=== PATIENT | male | born 1965 | race Caucasian/White ===

== ENCOUNTER → 2016-10-12 08:10 | Outpatient (CLI) | payer OTHER ==
--- NOTE | 2016-10-19 06:59 | EMG ---
PATIENT:HA JENNINGS DATE OF SERVICE: 10/12/16 MEDICAL RECORD: [id number] DATE OF : 61 LOCATION: [facility] ADMISSION DATE: REFERRING PHYSICIAN: SUKHI ROMERO INTERPRETING PHYSICIAN: TONY MEDRANO MD DATE OF SERVICE: 10/12/2016 REFERRED BY: Dr. Sukhi Romero as an outpatient. DATE OF EXAMINATION: 10/12/2016. ELECTROMYOGRAPHIC DATA: Electromyographic examination is limited to both lower extremities. In the right lower extremity, right peroneal motor stimulation elicits a compound motor action potential with a distal latency of 4.6 milliseconds, peak amplitude of 4 millivolts, and calculated conduction velocity of 43 meters per second. Right tibial motor stimulation elicits a compound motor action potential with a distal latency of 3.5 milliseconds, peak amplitude of 11 millivolts, and calculated conduction velocity of 40 meters per second. Antidromic right sural sensory stimulation elicits a response with a distal latency of 2.7 milliseconds, amplitude of 18 microvolts, and calculated conduction velocity of 42 meters per second. The right lower extremity H reflex recording at gastrocsoleus has a latency of 40 milliseconds. In the left lower extremity, left peroneal motor stimulation elicits a compound motor action potential with a distal latency of 5.1 milliseconds, peak amplitude of 4 millivolts, and calculated conduction velocity of 39 meters per second. Left tibial motor stimulation elicits a compound motor action potential with a distal latency of 4.3 milliseconds, peak amplitude of 12 millivolts, and calculated conduction velocity of 46 meters per second. Antidromic left sural sensory stimulation elicits a response with a distal latency of 2.9 milliseconds, amplitude of 15 microvolts, and calculated conduction velocity of 38 meters per second. The left lower extremity H reflex recording at gastrocsoleus has a latency of 39 milliseconds. Needle electrode examination is limited to both lower extremities as well. Muscles interrogated include the abductor hallucis, extensor digitorum brevis, abductor digiti quinti, tibialis anterior, medial gastrocnemius, vastus lateralis, semitendinosis and gluteus vick. There is no abnormality of insertional activity and no abnormal spontaneous activity is seen in all muscles interrogated. Motor unit potential morphology and the pattern of motor unit potential firing and recruitment are normal in all muscles sampled. Motor units fire at a slow variable rate consistent with decreased in variable patient effort. INTERPRETATION: Electromyographic examination of both lower extremities demonstrates all calculated conduction velocities to be at or just below the lower limits of normal with prolongation of the H reflexes bilaterally, most consistent with a diffuse disorder of the lower motor neuron in both lower extremities, minimal in degree electrically, consistent with the diagnosis of a sensory motor peripheral polyneuropathy. There is no electrical evidence of a superimposed lumbosacral radiculopathy or other lesion of the lower motor neuron in both lower extremities at this time. There is no evidence for active ELECTROMYGRAM/NERVE CONDUCTION [id number] HA JENNINGS denervation. TRANSINT:[id number] Voice Confirmation ID: [id number] DOCUMENT ID: [id number] TONY MEDRANO MD at 0659 CC: [id number] DICTATION DATE: 10/12/16911 WHEEL PRESSER: 10/12/16 1005 DEP CLI 10/12/16 [id number] [place] [address]
== END | disposition home or self-care (01) ==
LOC: D.CN 08:10
DX: M79.651 Pain in right thigh (principal); M79.652 Pain in left thigh